=== PATIENT | female | born 1990 | race Caucasian/White ===

== ENCOUNTER 2018-02-19 23:44 | Emergency (ER) | payer OTHER ==
[~2018-02-19] VITALS: Ht 165.1 cm; Wt 99.8 kg
[~2018-02-19 23:44] MED LIST: ACETAMINOPHEN-1 EAC1; AMOXICILLIN500 M1 PO; ANTIPYRINE-BENZ14 ML OT; CIPRO500 MG PO; CIPROFLOXACIN500 M1 PO; CLEOCIN HCL300 MG PO; HYDROCODON-ACE1 EAC7 PO; IBUPROFEN 800800 M1 PO; NOHOMEMEDICATIONS; NORCO 5-325 TA1 EACH PO; PENICILLIN V P500 MG PO; PENICILLIN VK500 M1 PO; PERCOCET 5-3251 EACH PO; PHENERGAN 25 MG25 M1 PO; PSEUDOEPHEDRINE60 M1 PO; ULTRAM 50MG TAB50 MG PO; VICODIN 5-5001 EACH PO; VISTARIL 25 MG25 M1 PO; ZOFRAN 4 MG ORAL4 MG PO; ZOFRAN ODT4 MG PO; ZOFRAN ODT4 MG SUBLING
[2018-02-20 00:30] LABS: INFLUENZA A ANTIGEN None Detected (None Detect); INFLUENZA B ANTIGEN None Detected (None Detect)
[2018-02-20 01:01] VITALS: BP 128/75
== END 2018-02-20 01:02 | disposition home or self-care (01) ==
LOC: M.ERS 23:44
PROVIDERS: Nurse Practitioner Family
DX: J02.0 Streptococcal pharyngitis (principal); F41.9 Anxiety disorder, unspecified